=== PATIENT | female | born 1950 | race Asian ===

== ENCOUNTER 2017-06-10 09:38 | Emergency (ER) | payer OTHER ==
[~2017-06-10] VITALS: Ht 152.4 cm; Wt 49.9 kg
[2017-06-10 10:38] LABS: BASO # 0.1 x10^3/uL (0.0-0.2); BASO % 1 % (0-3); EOS % 0 % (0-3); HEMATOCRIT 42.5 % (36.0-47.0); LYMPH # 1.5 x10^3/uL (1.0-4.8); LYMPH % 8 % (24-48); MEAN CORPUSCULAR HEMOGLOBIN 28 pg (25-35); MEAN CORPUSCULAR HGB CONC 33 g/dL (31-37); MEAN CORPUSCULAR VOLUME 84 fL (79-100); MONO % 7 % (0-9); NEUT % 85 % (31-73); PLATELET COUNT 245 x10^3/uL (140-400); RED BLOOD COUNT 5.09 x10^6/uL (3.50-5.40); RED CELL DISTRIBUTION WIDTH 13.3 % (11.5-14.5); WHITE BLOOD COUNT 20.1 x10^3/uL (4.0-11.0)
[2017-06-10] MEDS ORDERED: IV NORMAL SALINE 1000ML BAG 1,000 ML IV SCH (10:45)
[2017-06-10 10:46] LABS: CALCIUM 8.5 mg/dL (8.5-10.1); CREATININE 1.1 mg/dL (0.6-1.0); GFR 49.8; POTASSIUM 3.3 mmol/L (3.5-5.1)
[2017-06-10 10:51] LABS: ALBUMIN 3.5 g/dL (3.4-5.0); ALBUMIN/GLOBULIN RATIO 0.7 (1.0-1.7); TOTAL BILIRUBIN 1.6 mg/dL (0.2-1.0); TOTAL PROTEIN 8.7 g/dL (6.4-8.2)
--- NOTE | 2017-06-10 10:57 | RAD ---
Portable chest, 06/10/2017: History: Fever and weakness Comparison is made to a study from 01/27/2009. The heart is at the upper limits of normal in size. There is mild tortuosity of the aorta. The pulmonary vascularity is normal. There is mild linear atelectasis in the right base. The lungs are otherwise clear. There is no evidence of pleural fluid. IMPRESSION: Mild right basilar linear atelectasis.
--- NOTE | 2017-06-10 11:00 | PHYS DOC ---
Past Medical History Past Medical History: No Pertinent History Past Surgical History: No Surgical History Alcohol Use: None Drug Use: None Adult General Chief Complaint Chief Complaint: DIZZY/LIGHT HEADED HPI HPI Patient is a 66 year old female who presents with complaint of fever and dizziness. The patient states that her symptoms started 2 days ago and have continued to worsen. Patient states that she has been having trouble sore throat but denies any cough or shortness of breath. Patient is had no recent travel outside of the [place]. Patient has had no nausea or vomiting. Patient states that when she attempts to stand up she becomes very weak and lightheaded which is requiring her to sit down and rest more than usual. Patient has not been on any medications to help with symptoms. Patient came to the emergency department for further evaluation. Review of Systems Review of Systems Constitutional: Fever, lightheadedness[] Eyes: Denies change in visual acuity, redness, or eye pain [] HENT: Sore throat, denies nasal congestion or ear pain[] Respiratory: Denies cough or shortness of breath [] Cardiovascular: Denies chest pain or edema[] GI: Denies abdominal pain, nausea, vomiting, bloody stools or diarrhea [] : Denies dysuria or hematuria [] Musculoskeletal: Myalgias[] Integument: Denies rash or skin lesions [] Neurologic: Denies headache, focal weakness or sensory changes [] All other systems were reviewed and found to be within normal limits, except as documented in this note. Current Medications Current Medications Current Medications Medications (Trade) Dose Ordered Sig/Jodee Start Time Stop Time Status Last Admin Dose Admin Penicillin G Benzathine (Bicillin L-A) 1,200,000 unit 1X ONCE 06/10/17 12:15 06/10/17 12:16 DC 06/10/17 12:35 1,200,000 UNIT Sodium Chloride 1,000 ml @ 690 mls/hr Q1H27M 06/10/17 10:45 06/10/17 12:55 DC 06/10/17 10:39 690 MLS/HR Allergies Allergies Allergies Coded Allergies Type Severity Reaction Last Updated Verified No Known Drug Allergies 06/10/17 No Physical Exam Physical Exam Constitutional: Alert, febrile, appears ill. [] HENT: Normocephalic, atraumatic, bilateral external ears normal, oropharynx erythematous, no oral exudates, nose normal. [] Eyes: PERRLA, EOMI, conjunctiva normal, no discharge. [] Neck: Normal range of motion, no tenderness, supple, no stridor. [] Cardiovascular: Tachycardia, regular rhythm, no murmur [] Lungs & Thorax: Bilateral breath sounds clear to auscultation [] Abdomen: Bowel sounds normal, soft, no tenderness, no masses, no pulsatile masses. [] Skin: Warm, dry, no erythema, no rash. [] Back: No tenderness, no CVA tenderness. [] Extremities: No tenderness, no cyanosis, no clubbing, ROM intact, no edema. [] Neurologic: Alert and oriented X 3, normal motor function, normal sensory function, no focal deficits noted. [] Current Patient Data Vital Signs Vital Signs Date Time Temp Pulse Resp B/P (MAP) Pulse Ox O2 Delivery O2 Flow Rate FiO2 06/10/17 13:33 92 96 06/10/17 13:08 98.0 98.0 06/10/17 11:58 20 06/10/17 09:42 140/69 (92) Room Air Lab Values Laboratory Tests Test 06/10/17 10:17 06/10/17 10:35 06/10/17 11:20 06/10/17 11:28 White Blood Count 20.1 x10^3/uL (4.0-11.0) H Red Blood Count 5.09 x10^6/uL (3.50-5.40) Hemoglobin 14.0 g/dL (12.0-15.5) Hematocrit 42.5 % (36.0-47.0) Mean Corpuscular Volume 84 fL (79-100) Mean Corpuscular Hemoglobin 28 pg (25-35) Mean Corpuscular Hemoglobin Concent 33 g/dL (31-37) Red Cell Distribution Width 13.3 % (11.5-14.5) Platelet Count 245 x10^3/uL (140-400) Neutrophils (%) (Auto) 85 % (31-73) H Lymphocytes (%) (Auto) 8 % (24-48) L Monocytes (%) (Auto) 7 % (0-9) Eosinophils (%) (Auto) 0 % (0-3) Basophils (%) (Auto) 1 % (0-3) Neutrophils # (Auto) 17.1 x10^3uL (1.8-7.7) H Lymphocytes # (Auto) 1.5 x10^3/uL (1.0-4.8) Monocytes # (Auto) 1.3 x10^3/uL (0.0-1.1) H Eosinophils # (Auto) 0.0 x10^3/uL (0.0-0.7) Basophils # (Auto) 0.1 x10^3/uL (0.0-0.2) Segmented Neutrophils % 82 % (35-66) H Band Neutrophils % 7 % (0-9) Lymphocytes % 6 % (24-48) L Monocytes % 5 % (0-10) Platelet Estimate Adequate (ADEQUATE) Sodium Level 136 mmol/L (136-145) Potassium Level 3.3 mmol/L (3.5-5.1) L Chloride Level 100 mmol/L (98-107) Carbon Dioxide Level 24 mmol/L (21-32) Anion Gap 12 (6-14) Blood Urea Nitrogen 12 mg/dL (7-20) Creatinine 1.1 mg/dL (0.6-1.0) H Estimated GFR (Cockcroft-Gault) 49.8 BUN/Creatinine Ratio 11 (6-20) Glucose Level 131 mg/dL (70-99) H Lactic Acid Level 1.5 mmol/L (0.4-2.0) 1.2 mmol/L (0.4-2.0) Calcium Level 8.5 mg/dL (8.5-10.1) Total Bilirubin 1.6 mg/dL (0.2-1.0) H Aspartate Amino Transferase (AST) 59 U/L (15-37) H Alanine Aminotransferase (ALT) 24 U/L (14-59) Alkaline Phosphatase 122 U/L (46-116) H Total Protein 8.7 g/dL (6.4-8.2) H Albumin 3.5 g/dL (3.4-5.0) Albumin/Globulin Ratio 0.7 (1.0-1.7) L Influenza Type A Antigen Negative (NEGATIVE) Influenza Type B Antigen Negative (NEGATIVE) Urine Collection Type Void Urine Color Yellow Urine Clarity Hazy Urine pH 5.5 Urine Specific [place] 1.015 Urine Protein Negative mg/dL (NEG-TRACE) Urine Glucose (UA) Negative mg/dL (NEG) Urine Ketones (Stick) 15 mg/dL (NEG) Urine Blood Negative (NEG) Urine Nitrite Negative (NEG) Urine Bilirubin Negative (NEG) Urine Urobilinogen Dipstick 0.2 mg/dL (0.2 mg/dL) Urine Leukocyte Esterase Small (NEG) Urine RBC Occ /HPF (0-2) Urine WBC 5-10 /HPF (0-4) Urine Squamous Epithelial Cells Mod /LPF Urine Bacteria Few /HPF (0-FEW) Urine Mucus Slight /LPF Test 06/10/17 11:35 Group A Streptococcus Rapid Positive (NEGATIVE) Laboratory Tests 06/10/17 10:17 Laboratory Tests 06/10/17 10:17 EKG EKG Interpreted by me: Heart rate 98, sinus tachycardia, incomplete right bundle branch block, normal axis, no acute ST/T-wave abnormalities present[] Radiology/Procedures Radiology/Procedures [facility] [address] [place] [address] IMAGING REPORT Signed PATIENT: EDUAR FRIAS ACCOUNT: [id number] : 1950 LOCATION: ER AGE: 66 SEX: F EXAM STATUS: PRE ER ORD. PHYSICIAN: ORLANDO GARCÍA MD REASON: fever PROCEDURE: PORTABLE CHEST 1V Portable chest, 06/10/2017: History: Fever and weakness Comparison is made to a study from 01/27/2009. The heart is at the upper limits of normal in size. There is mild tortuosity of the aorta. The pulmonary vascularity is normal. There is mild linear atelectasis in the right base. The lungs are otherwise clear. There is no evidence of pleural fluid. IMPRESSION: Mild right basilar linear atelectasis. DICTATED and SIGNED BY: FRANCIS STOVALL MD DATE: 06/10/17 1052 CC: ORLANDO GARCÍA MD ~ [] Course & Med Decision Making Course & Med Decision Making Pertinent Labs and Imaging studies reviewed. (See chart for details) Patient was started on IV fluids. The patient was found to have a positive group A strep test in the emergency department. Patient was treated with IM Bicillin. On reevaluation, patient's symptoms have improved at this time and patient is feeling better. The patient will continue on ibuprofen for fever and sore throat. Advise follow-up with primary doctor in 2 days for reevaluation. Recommended return emergency department for any worsening symptoms per the patient was understanding and in agreement with treatment plan. Dragon Disclaimer Dragon Disclaimer This electronic medical record was generated, in whole or in part, using a voice recognition dictation system. Departure Departure Impression: Primary Impression: Strep pharyngitis Disposition: HOME, SELF-CARE Condition: IMPROVED Patient Instructions: Strep Throat Additional Instructions: You were treated with an injection of penicillin in the emergency department and will not require any further antibiotic therapy. Follow-up to primary doctor in 2 days for reevaluation. Return to emergency department for any worsening symptoms. Scripts Ibuprofen (IBUPROFEN) 400 Mg Tablet 400 MG PO Q6HRS Y for INFLAMMATION, #30 TAB Prov: ORLANDO GARCÍA MD 06/10/17 ORLANDO GARCÍA MD Jun 10, 2017 10:59
[2017-06-10 11:01] LABS: PLT ESTIMATE ADEQUATE (ADEQUATE)
--- NOTE | 2017-06-10 11:15 | EKG ---
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
[2017-06-10 11:40] LABS: BILIRUBIN,URINE NEGATIVE (NEG); GLUCOSE,URINE NEGATIVE (NEG); NITRITE,URINE NEGATIVE (NEG); PH,URINE 5.5; PROTEIN,URINE NEGATIVE (NEG-TRACE); UROBILINOGEN,URINE 0.2 mg/dL (0.2 mg/dL)
[2017-06-10 11:41] LABS: OBC FLU VALID
[2017-06-10 11:52] LABS: SQUAMOUS EPITHELIAL CELL,UR MOD /LPF
[2017-06-10 11:53] LABS: BACTERIA,URINE FEW /HPF (0-FEW); RBC,URINE OCC /HPF (0-2)
[2017-06-10 12:00] LABS: NEGATIVE OBC STREP NEG; POSITIVE OBC STREP POS
[2017-06-10] MEDS ORDERED: PENICILLIN G BENZATHINE LA 1,200,000 UNIT/2 ML DISP.SYRIN. IM ONE (12:15)
[2017-06-10] MEDS ORDERED: IBUP-1027 PO (13:10)
[2017-06-10 13:33] VITALS: BP 119/62
== END 2017-06-10 13:44 | disposition home or self-care (01) ==
LOC: ER 09:38
DX: J02.0 Streptococcal pharyngitis (principal); R42 Dizziness and giddiness
CPT/HCPCS: 36415; 71010; 80053; 81001; 83605; 85007; 85025; 87040; 87086; 87804; 87880; 93005; 96360; 96361; 96372; 99285; J0561; J7030

== ENCOUNTER 2021-02-01 19:11 | Emergency (ER) | payer MEDICAID, OTHER ==
[~2021-02-01] VITALS: Ht 152.4 cm; Wt 50.0 kg
[~2021-02-01 19:11] MED LIST: IBUP-1027 PO
[2021-02-01] MEDS ORDERED: IV NORMAL SALINE 1000ML BAG 1,000 ML IV SCH (21:30)
--- NOTE | 2021-02-01 21:32 | PHYS DOC ---
Past Medical History Past Medical History: No Pertinent History Past Surgical History: No Surgical History Smoking Status: Never Smoker Alcohol Use: None Drug Use: None General Adult EDM: Chief Complaint: DIZZY/LIGHT HEADED HPI: HPI: 70-year-old female with no significant past medical history presents to the ED with complaints of intermittent episodes of vertigo for the past month stating today has been the worst episode of dizziness described as " I feel as if I am drunk," with associated mild nausea, diffuse headache and difficulties walking. Patient states she was seen in urgent care clinic a few weeks ago and was prescribed losartan for the symptoms. Has no routine primary care. No known history of Covid. Is here with her granddaughter who is assisting with translation, speaks Lani/from [place] (recycling assistant services were offered). Review of Systems: Review of Systems: Constitutional: Denies fever or chills. [] Eyes: Denies change in visual acuity. [] HENT: Denies nasal congestion or sore throat. [] Respiratory: Denies cough or shortness of breath. [] Cardiovascular: Denies chest pain or edema. [] GI: Denies abdominal pain, bloody stools or diarrhea. [] : Denies dysuria or vaginal bleeding Musculoskeletal: Denies back pain or joint pain. [] Integument: Denies rash or diaphoresis Neurologic: Denies neck pain, focal weakness or sensory changes. [] Endocrine: Denies polyuria or polydipsia. [] Lymphatic: Denies swollen glands. [] Psychiatric: Denies depression or anxiety. [] Heart Score: C/O Chest Pain: No Risk Factors: Risk Factors: DM, Current or recent (<one month) smoker, HTN, HLP, family history of CAD, obesity. Risk Scores: Score 0 - 3: 2.5% MACE over next 6 weeks - Discharge Home Score 4 - 6: 20.3% MACE over next 6 weeks - Admit for Clinical Observation Score 7 - 10: 72.7% MACE over next 6 weeks - Early Invasive Strategies Allergies: Allergies: Allergies Coded Allergies Type Severity Reaction Last Updated Verified No Known Drug Allergies 06/10/17 No Physical Exam: PE: Constitutional: well nourished, no acute distress, HENT: Normocephalic, atraumatic, normal tympanic membranes bilaterally Eyes: PERRLA, EOMI, conjunctiva normal, no discharge, no horizontal or vertical nystagmus Neck: Normal range of motion, supple, no nuchal rigidity or meningismus Cardiovascular: S1/2 present, regular rhythm Lungs & Thorax: Speaking in full sentences, bilateral equal chest rise, no tachypnea or increased work of breathing Abdomen: soft, no tenderness, Skin: Warm, dry, no erythema, no rash. [] Extremities: No tenderness, no cyanosis, Neurologic: Alert and oriented X 3, normal motor function, normal sensory function, no focal deficits noted, very slow with finger-nose to finger and rapid alternating movements - does not miss Psychologic: Affect normal, judgement normal, mood normal. [] HINTS exam performed with active persistent vertigo. Exam negative for central pathology. Pt with no vertical nystagmus (horizontal nystagmus and lack of nystagmus consistent with peripheral vertigo), normal corrective saccade with head impulse test and no skew deviation. EKG: EKG: Sinus rhythm 72 bpm, no axis deviation, normal intervals, no obvious T wave inversions, ST elevations or ST depressions Radiology/Procedures: Radiology/Procedures: []IMAGING REPORT Signed PATIENT: EDUAR FRIAS ACCOUNT: [id number] : 1950 LOCATION: ER AGE: 70 SEX: F EXAM STATUS: REG ER ORD. PHYSICIAN: CULLEN BRUSH DO REASON: dizzy/light headed PROCEDURE: PORTABLE CHEST 1V XR CHEST 1V History: Reason: dizzy/light headed / Spl. Instructions: / History: Comparison: June 10, 2017 Findings: No consolidation or pleural effusion. Unchanged enlarged heart size. No pneumothorax. Impression: 1. No acute cardiopulmonary process. Electronically signed by: Nghia Morales DO (02/01/2021 10:14 PM) [facility] DICTATED and SIGNED BY: NGHIA MORALES DO DATE: 02/01/21 [id number] IMAGING REPORT Signed PATIENT: EDUAR FRIAS ACCOUNT: [id number] : 1950 LOCATION: ER AGE: 70 SEX: F EXAM STATUS: REG ER ORD. PHYSICIAN: CULLEN BRUSH DO REASON: dizzy x 1 mn with 04/08 hedaace PROCEDURE: CT HEAD WO CONTRAST EXAM: CT HEAD WITHOUT CONTRAST. HISTORY: Dizziness, headache. TECHNIQUE: Computed tomography of the head was performed without intravenous contrast. One or more of the following individualized dose reduction techniques were utilized for this examination: 1. Automated exposure control. 2. Adjustment of the mA and/or kV according to patient size. 3. Use of iterative reconstruction technique. COMPARISON: None. FINDINGS: There is no intracranial hemorrhage. Bazzi-white differentiation is preserved. The ventricles are normal in size and position. There is a small mucus retention cyst in the right ethmoid air cells. There is mild mucosal thickening elsewhere. The orbits are unremarkable. The temporal bones are unremarkable. The calvarium reveals no suspicious lesions. IMPRESSION: 1. No acute intracranial findings. Electronically signed by: Mildred Eden MD (02/01/2021 11:29 PM) [facility] DICTATED and SIGNED BY: BRITANY EDEN MD DATE: 02/01/21 [id number] IMAGING REPORT Signed PATIENT: EDUAR FRIAS ACCOUNT: [id number] : 1950 LOCATION: ER AGE: 70 SEX: F EXAM STATUS: REG ER ORD. PHYSICIAN: CULLEN BRUSH DO REASON: vertiho/headache;OMNI 300, 75ML PROCEDURE: CT ANGIOGRAPHY HEAD AND NECK EXAM: 1. CTA HEAD WITH AND WITHOUT CONTRAST. 2. CTA NECK WITH AND WITHOUT CONTRAST. HISTORY: Vertigo, headache. TECHNIQUE: Computed tomographic angiography of the head and neck was performed before and after the intravenous administration of iodinated contrast. Three- dimensional reconstructions were also performed. One or more of the following i ndividualized dose reduction techniques were utilized for this examination: 1. Automated exposure control. 2. Adjustment of the mA and/or kV according to patient size. 3. Use of iterative reconstruction technique. COMPARISON: None. FINDINGS: Angiographic findings: The aortic arch has a typical branching pattern. There is no arch vessel stenosis. Both common carotid arteries are patent without stenosis. Both internal carotid arteries are patent without stenosis. The external carotid systems are patent. The vertebral arteries are patent. The basilar artery is patent. There is a persistent origin of the left posterior cerebral artery. Both posterior cerebral arteries are patent. The right posterior communicating artery is visualized. The intracranial internal carotid arteries demonstrate no stenosis. The middle cerebral arteries are patent. The anterior cerebral arteries are patent. The anterior communicating artery is visualized. Nonangiographic findings: There is no intracranial hemorrhage. Bazzi-white differentiation is preserved. The ventricles are normal in size and position. The paranasal sinuses appear clear. The orbits are unremarkable. The temporal bones are unremarkable. Bone windows reveal a prominent hemangioma at T3. There are no suspicious lesions. The lung apices demonstrate no acute abnormality. The parotid glands and submandibular glands are unremarkable. Both thyroid lobes are moderately enlarged by multiple nodules. There is no significant intrathoracic extension. The right lobe measures 3.1 x 2.9 cm transaxially. There are no laryngeal or pharyngeal masses. There are no pathologically enlarged lymph nodes. IMPRESSION: 1. No intracranial stenosis or aneurysm. 2. No evidence of significant cervical arterial stenosis. 3. Moderate multinodular thyroid goiter bilaterally. PQRS Compliance Statement - Stenosis calculations for CT, MR and conventional a ngiography are based upon measurement of the distal ICA diameter in accordance with the NASCET methodology. Stenosis calculations for carotid ultrasound studies are derived from validated velocity criteria which are known to correlate with the NASCET methodology. Electronically signed by: Mildred Eden MD (02/02/2021 12:48 AM) [facility] DICTATED and SIGNED BY: BRITANY EDEN MD DATE: 02/02/21 [id number] Course & Med Decision Making: Course & Med Decision Making Pertinent Labs and Imaging studies reviewed. (See chart for details) Concern for peripheral, intermittent episodes of vertigo, currently asymptomatic in the ED. CT of the head and angio head/neck shows no evidence of stroke or large vessel occlusion. Labs show nonspecific leukocytosis of fourteen. Two troponins are negative. EKG with no ischemia. Chest x-ray with no acute process. UA with no signs of infection. Drug screen negative. Will discharge home with strict ED return precautions were given for neurologic deficits, weakness, ataxia, chest pain, syncope or dyspnea. Encouraged urgent outpatient follow-up with PMD and ENT. Life-threatening processes were considered but are low suspicion at this time, given history, physical exam and ED workup. Pt was educated on all prescription medications and adverse effects. All patient's questions were answered and pt was stable at time of discharge. Life/limb-threatening differential includes but is not limited to, cerebrovascu lar accident, cerebellar stroke, acute coronary syndrome, carbon monoxide poisoning or other toxidrome, syncope differential including cardiac arrhythmia/PE/aortic aneurysm or dissection/ACS, Gu[place] syndrome, thyroid disease, infection, central and peripheral vertigo, intracranial hemorrhage, vertebrobasilar insufficiency, heat stroke, electrolyte disorder, rheumatologic or autoimmune disorder I have spoken with the patient and/or caregivers. I explained the patient's condition, diagnoses and treatment plan based on the information available to me at this time. I have answered the patient and/or caregiver's questions and a ddressed any concerns. The patient and/or caregivers have a good understanding of patient's diagnosis, condition and treatment plan as can be expected at this point. Vital signs have been stable. Patient's condition is stable and appropriate for discharge from the emergency department. Patient will pursue further outpatient evaluation with primary care physician or other designated or consulting physician as outlined in the discharge instructions. The patient and/or caregivers are agreeable to this plan of care and follow-up instructions have been explained in detail. The patient and/or caregivers have received these instructions in written form and have expressed an understanding of the discharge instructions. The patient and/or caregivers are aware that any significant change of condition or worsening of symptoms should prompt immediate return to this or the closest emergency department or call to 911. Shaq Disclaimer: Shaq Disclaimer: This electronic medical record was generated, in whole or in part, using a voice recognition dictation system. Departure Departure Impression: Primary Impression: Vertigo Disposition: 01 HOME / SELF CARE / HOMELESS Condition: STABLE Referrals: NO PCP (PCP) Follow-up with your primary care physician in 24 to 48 hours OR FOLLOW UP WITH FAMILY MEDICINE: [address], [address] [place] [address] Patient Instructions: Vertigo Additional Instructions: FOLLOW UP WITH ENT: FOR DEFINITIVE MANAGEMENT of vertigo Otolaryngology [address], [address] [place] [address] magician/illusionist [facility] [address] [place] [id number] EMERGENCY DEPARTMENT GENERAL DISCHARGE INSTRUCTIONS Thank you for coming to [facility] Emergency Department (ED) today and trusting us with you care. We trust that you had a positive experience in our Emergency Department. If you wish to speak to the department management, you may call the Director at [phone]. YOUR FOLLOW UP INSTRUCTIONS ARE FOLLOWS: 1. Do you have a private Doctor? If you do not have a private doctor, please ask for a resource list of physicians or clinics that may be able to assist you with follow up care. ADDITIONAL INSTRUCTIONS AND INFORMATION: 1. Your care today has been supervised by a physician who is specially trained in emergency care. Many problems require more than one evaluation for a complete diagnosis and treatment. We recommend that you schedule your follow up appointment as erinn mmended to ensure complete treatment of you illness or injury. If you are unable to obtain follow up care and continue to have a problem, or if your condition worsens, we recommend that you return to the ED. 2. We are not able to safely determine your condition over the phone nor are we able to give sound medical advice over the phone. For these safety reasons, if you call for medical advice we will ask you to come to the ED for further evaluation. 3. If you have any questions regarding these discharge instructions please call the ED at [phone]. SAFETY INFORMATION: In the interest of safety, wellness, and injury prevention; we encourage you to wear your sealbelt, if you smoke; quite smoking, and we encourage family to use a protective helmet for bicycling and other sporting events that present an increased risk for head injury. IF YOUR SYMPTOMS WORSEN OR NEW SYMPTOMS DEVELOP, OR YOU HAVE CONCERNS ABOUT YOUR CONDITION; OR IF YOUR CONDITION WORSENS WHILE YOU ARE WAITING FOR YOUR FOLLOW UP APPOINTMENT; EITHER CONTACT YOUR PRIMARY CARE DOCTOR, THE PHYSICIAN WHOSE NAME AND NUMBER YOU WERE GIVEN, OR RETURN TO THE ED IMMEDIATELY. Scripts Meclizine Hcl (MECLIZINE HCL) 25 Mg Tablet 1 TAB PO TID for dizziness, #20 TAB Prov: CULLEN BRUSH DO 02/02/21 CULLEN BRUSH DO Feb 01, 2021 21:32
[2021-02-01 22:13] LABS: BASO # 0.2 x10^3/uL (0.0-0.2); BASO % 1 % (0-3); EOS # 0.6 x10^3/uL (0.0-0.7); EOS % 4 % (0-3); HEMATOCRIT 41.7 % (36.0-47.0); HEMOGLOBIN 14.2 g/dL (12.0-15.5); LYMPH # 5.8 x10^3/uL (1.0-4.8); LYMPH % 41 % (24-48); MEAN CORPUSCULAR HEMOGLOBIN 29 pg (25-35); MEAN CORPUSCULAR HGB CONC 34 g/dL (31-37); MEAN CORPUSCULAR VOLUME 84 fL (79-100); MONO # 0.7 x10^3/uL (0.0-1.1); MONO % 5 % (0-9); NEUT # 6.8 x10^3/uL (1.8-7.7); NEUT % 49 % (31-73); PLATELET COUNT 339 x10^3/uL (140-400); RED BLOOD COUNT 4.98 x10^6/uL (3.50-5.40); RED CELL DISTRIBUTION WIDTH 13.5 % (11.5-14.5)
--- NOTE | 2021-02-01 22:16 | RAD ---
XR CHEST 1V History: Reason: dizzy/light headed / Spl. Instructions: / History: Comparison: June 10, 2017 Findings: No consolidation or pleural effusion. Unchanged enlarged heart size. No pneumothorax. Impression: 1. No acute cardiopulmonary process. Electronically signed by: Nghia Morales DO (02/01/2021 10:14 PM) [facility]
[2021-02-01 22:24] LABS: BILIRUBIN,URINE NEGATIVE (NEG); CLARITY,URINE CLEAR; COLOR,URINE YELLOW; NITRITE,URINE NEGATIVE (NEG); PH,URINE 6.5 (<5.0-8.0); PROTEIN,URINE NEGATIVE (NEG-TRACE); UROBILINOGEN,URINE 0.2 mg/dL (0.2 mg/dL)
[2021-02-01 22:28] LABS: CREATININE 0.8 mg/dL (0.6-1.0); GFR 71.1; POTASSIUM 3.2 mmol/L (3.5-5.1)
[2021-02-01] MEDS ORDERED: MECLIZINE HCL 12.5 MG TABLET. PO ONE (22:30)
[2021-02-01] MEDS ORDERED: diphenhydrAMINE 50 MG/ML VIAL IVP ONE (22:30)
[2021-02-01] MEDS ORDERED: METOCLOPRAMIDE HCL 10 MG/2 ML VIAL. IVP ONE (22:30)
[2021-02-01] MEDS ORDERED: diazePAM 5 MG TABLET PO ONE (22:30)
[2021-02-01] MEDS ORDERED: IV NORMAL SALINE 1000ML BAG 1,000 ML IV ONE (22:30)
[2021-02-01 22:31] LABS: ALBUMIN 3.2 g/dL (3.4-5.0); DIRECT BILIRUBIN 0.1 mg/dL (0.0-0.2); MAGNESIUM 2.3 mg/dL (1.8-2.4); TOTAL BILIRUBIN 0.3 mg/dL (0.2-1.0); TOTAL PROTEIN 7.6 g/dL (6.4-8.2)
[2021-02-01 22:32] LABS: BARBITURATES NEG (NEG); BENZODIAZEPINES NEG (NEG); CANNABINOIDS NEG (NEG); COCAINE NEG (NEG); METHADONE NEG (NEG); OPIATES NEG (NEG); PHENCYCLIDINE NEG (NEG)
[2021-02-01 22:34] LABS: AMPHETAMINE/METHAMPHETAMINE NEG (NEG)
[2021-02-01 22:36] LABS: CALCIUM 8.4 mg/dL (8.5-10.1)
[2021-02-01 22:40] LABS: BACTERIA,URINE 0 /HPF (0-FEW); RBC,URINE 0 /HPF (0-2); WBC,URINE 0 /HPF (0-4)
[2021-02-01] MEDS ORDERED: IOHEXOL 300 MG/ML 100ML VIAL. ONE (23:13)
[2021-02-01] MEDS ORDERED: CONTRAST GIVEN. MC PRN (23:15)
[2021-02-01] MEDS ORDERED: IOHEXOL 300 MG/ML 100ML VIAL. IV ONE (23:15)
--- NOTE | 2021-02-01 23:31 | RAD ---
EXAM: CT HEAD WITHOUT CONTRAST. HISTORY: Dizziness, headache. TECHNIQUE: Computed tomography of the head was performed without intravenous contrast. One or more of the following individualized dose reduction techniques were utilized for this examination: 1. Automated exposure control. 2. Adjustment of the mA and/or kV according to patient size. 3. Use of iterative reconstruction technique. COMPARISON: None. FINDINGS: There is no intracranial hemorrhage. Bazzi-white differentiation is preserved. The ventricle s are normal in size and position. There is a small mucus retention cyst in the right ethmoid air cells. There is mild mucosal thickenin g elsewhere. The orbits are unremarkable. The temporal bones are unremarkable. The calvarium reveals no suspicious lesions. IMPRESSION: 1. No acute intracranial findings. Electronically signed by: Mildred Eden MD (02/01/2021 11:29 PM) [facility]
--- NOTE | 2021-02-02 00:50 | EKG ---
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
--- NOTE | 2021-02-02 00:51 | RAD ---
EXAM: 1. CTA HEAD WITH AND WITHOUT CONTRAST. 2. CTA NECK WITH AND WITHOUT CONTRAST. HISTORY: Vertigo, headache. TECHNIQUE: Computed tomographic angiography of the head and neck was performed before and after the i ntravenous administration of iodinated contrast. Three-dimensional reconstructions were also performe d. One or more of the following individualized dose reduction techniques were utilized for this exami nation: 1. Automated exposure control. 2. Adjustment of the mA and/or kV according to patient size. 3. Use of iterative reconstruction technique. COMPARISON: None. FINDINGS: Angiographic findings: The aortic arch has a typical branching pattern. There is no arch vessel steno sis. Both common carotid arteries are patent without stenosis. Both internal carotid arteries are patent w ithout stenosis. The external carotid systems are patent. The vertebral arteries are patent. The basilar artery is patent. There is a persistent origin of the left posterior cerebral arter y. Both posterior cerebral arteries are patent. The right posterior communicating artery is visualize d. The intracranial internal carotid arteries demonstrate no stenosis. The middle cerebral arteries are patent. The anterior cerebral arteries are patent. The anterior communicating artery is visualized. Nonangiographic findings: There is no intracranial hemorrhage. Bazzi-white differentiation is preserve d. The ventricles are normal in size and position. The paranasal sinuses appear clear. The orbits are unremarkable. The temporal bones are unremarkable. Bone windows reveal a prominent hemangioma at T3. There are no suspicious lesions. The lung apices d emonstrate no acute abnormality. The parotid glands and submandibular glands are unremarkable. Both thyroid lobes are moderately enlar ged by multiple nodules. There is no significant intrathoracic extension. The right lobe measures 3.1 x 2.9 cm transaxially. There are no laryngeal or pharyngeal masses. There are no pathologically enlarged lymph nodes. IMPRESSION: 1. No intracranial stenosis or aneurysm. 2. No evidence of significant cervical arterial stenosis. 3. Moderate multinodular thyroid goiter bilaterally. PQRS Compliance Statement - Stenosis calculations for CT, MR and conventional angiography are based u yared measurement of the distal ICA diameter in accordance with the NASCET methodology. Stenosis calcu lations for carotid ultrasound studies are derived from validated velocity criteria which are known t o correlate with the NASCET methodology. Electronically signed by: Mildred Eden MD (02/02/2021 12:48 AM) [facility]
[2021-02-02 03:51] VITALS: BP 136/66
[2021-02-02] MEDS ORDERED: MECL-75 PO (04:06)
--- NOTE | 2021-02-02 05:14 | EKG ---
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
== END 2021-02-02 04:28 | disposition home or self-care (01) ==
LOC: ER 19:11
DX: R42 Dizziness and giddiness (principal); R51.9 Headache, unspecified
CPT/HCPCS: 36415; 70450; 70496; 70498; 71045; 80048; 80076; 80307; 81001; 83690; 83735; 83880; 84484; 85025; 93005; 96361; 96374; 96375; 99285; G0480; J1200; J2765; J7030; J8597; Q9967